=== PATIENT | female | born 1980 | race Caucasian/White ===

== ENCOUNTER → 2018-06-09 | Outpatient (CLI) | payer OTHER ==
[~2018-06-09] MED LIST: GLUCOPHAGE500 MG/TAB PO; IMITREX100 MG PO; MACROBID 1100 MG/CAP PO; NORCO 325 MG-51 TAB PO; PRENATAL1 TA1 PO; WELLBUTRIN SR150 M1 PO
== END ==
LOC: BHSO 09:48
DX: F43.10 Post-traumatic stress disorder, unspecified (principal)

== ENCOUNTER → 2018-06-24 | Outpatient (CLI) | payer OTHER | LOC: BHSO 09:59 | DX: F43.10 Post-traumatic stress disorder, unspecified (principal) ==

== ENCOUNTER → 2018-07-01 | Outpatient (REF) ==
[~2018-07-01] MED LIST changes: +ATIVAN 0.50.5 MG/TAB PO; +EFFEXOR XR75 MG/CAP PO; +OTEZLA PO; +PRINCIPEN500 MG PO; +RELPAX 40MG TAB40 MG PO; +TOPAMAX 100MG100 M1 PO; +TRANDATE 100MG100 MG PO; +ZEMBRACE S3 MG/0.5 M SQ
== END ==
LOC: ZLAB.WCH 08:49
DX: Z01.89 Encounter for other specified special examinations (principal)

== ENCOUNTER 2018-07-06 17:55 | Inpatient (IN) | payer OTHER ==
[~2018-07-06] VITALS: Ht 170.2 cm; Wt 72.9 kg
[2018-07-06] MEDS ORDERED: PERCOCET 325 MG1 TA2 PO (19:16)
[2018-07-06] MEDS ORDERED: NORMODYNE100 MG PO (19:17)
[2018-07-06 20:48] LABS: HEMATOCRIT 40.1 % (37.0-47.0); HEMOGLOBIN 13.6 g/dl (12.5-16.0); MEAN CELL VOLUME 89 fl (80.0-100.0); MEAN CORPUSCULAR HEMOGLOBIN 30 pg (27.0-31.0); MEAN CORPUSCULAR HGB CONC 34 g/dl (33.0-37.0); PLATELET COUNT 316 K/mm3 (130-400); RED BLOOD COUNT 4.52 M/mm3 (4.10-5.30); REDCELL DISTRIBUTION WIDTH-CV 13.2 % (11.5-14.5)
[2018-07-06 20:59] LABS: COLLECTION METHOD CLEAN CATCH
[2018-07-06 20:59] LABS: BILIRUBIN,TOTAL 0.4 mg/dL (0.0-1.0); CALCIUM 9.2 mg/dL (8.4-10.2); CREATININE, serum 0.62 mg/dL (0.52-1.25); POTASSIUM 3.7 mmol/L (3.4-5.0); TOTAL PROTEIN 7.6 gm/dL (6.4-8.2)
[2018-07-06 21:04] LABS: MUCOUS Present /lpf; PH 7 (5-8); URINE APPEARANCE Hazy; URINE BACTERIA Rare /hpf; URINE BILIRUBIN Negative (NEGATIVE); URINE BLOOD Negative (NEGATIVE); URINE COLOR Yellow; URINE GLUCOSE Negative (NEGATIVE); URINE KETONE Negative (NEGATIVE); URINE LEUKOCYTE ESTERASE Negative (NEGATIVE); URINE NITRATE Negative (NEGATIVE); URINE PROTEIN(semi-quant) Negative (NEGATIVE); URINE UROBILINOGEN Negative (NEGATIVE)
[2018-07-06 21:06] LABS: BAND 3 % (0-10); EOSINOPHIL 4 % (0-4); NEUTROPHILS 71 % (42.0-75.2); PLATELET ESTIMATE NORMAL (NORMAL)
[2018-07-06 21:07] LABS: LYMPHOCYTE 15 % (20.0-51.0)
[2018-07-06] MEDS ORDERED: MIGRANAL NASA4 MG/ML NS (23:22)
[2018-07-06 23:55] VITALS: BP 129/79; PULSE 62; TEMP 97.8
[2018-07-07 02:05] VITALS: BP 124/73; PULSE 61
[2018-07-07 04:24] VITALS: BP 107/54; PULSE 73; TEMP 98.2
[2018-07-07 07:27] LABS: MEAN CELL VOLUME 87 fl (80.0-100.0); MEAN CORPUSCULAR HEMOGLOBIN 30 pg (27.0-31.0); MEAN CORPUSCULAR HGB CONC 34 g/dl (33.0-37.0); MEAN PLATELET VOLUME 10.2 fl (7.4-10.4); RED BLOOD COUNT 4.69 M/mm3 (4.10-5.30); REDCELL DISTRIBUTION WIDTH-CV 13.2 % (11.5-14.5)
[2018-07-07 07:32] LABS: PLATELET COUNT 418 K/mm3 (130-400)
[2018-07-07 07:33] LABS: CALCIUM 8.9 mg/dL (8.4-10.2); CREATININE, serum 0.6 mg/dL (0.52-1.25); POTASSIUM 4.2 mmol/L (3.4-5.0)
[2018-07-07 09:24] VITALS: BP 125/80; PULSE 76; TEMP 98.8
[2018-07-07 10:21] LABS: BAND 6 % (0-10); EOSINOPHIL 1 % (0-4); LYMPHOCYTE 9 % (20.0-51.0); NEUTROPHILS 84 % (42.0-75.2); PLATELET ESTIMATE INCREASED (NORMAL)
[2018-07-07 10:22] LABS: TOXIC GRANULATION PRESENT
[2018-07-07 12:03] VITALS: BP 131/72; PULSE 81; TEMP 98.8
[2018-07-07 16:42] VITALS: BP 125/78; PULSE 80; TEMP 99.3
[2018-07-07 20:56] VITALS: BP 115/63; PULSE 76; TEMP 98.8
[2018-07-07 22:13] LABS: TRICYCLIC ANTIDEPRESS URINE NEGATIVE
[2018-07-08] VITALS (7 sets, daily range): BP systolic 115–138; BP diastolic 64–89; PULSE 62–75; TEMP 97.2–99
[2018-07-08 08:46] LABS: BASO # 0.1 (0.0-0.2); BASO % 0.6 % (0.0-2.0); EOS # 0.4 (0.0-0.7); EOS % 2.9 % (0-4.0); GRAN # 7.2 (1.4-6.5); GRAN % 58.2 % (42.2-75.2); HEMATOCRIT 34.1 % (37.0-47.0); LYMPH # 3.8 (1.2-3.4); LYMPH % 30.5 % (20.0-51.0); MEAN CELL VOLUME 89 fl (80.0-100.0); MEAN CORPUSCULAR HEMOGLOBIN 30 pg (27.0-31.0); MEAN CORPUSCULAR HGB CONC 34 g/dl (33.0-37.0); MEAN PLATELET VOLUME 10.1 fl (7.4-10.4); MONO # 0.8 (0.1-0.6); MONO % 6.4 % (1.7-9.3); PLATELET COUNT 361 K/mm3 (130-400); RED BLOOD COUNT 3.85 M/mm3 (4.10-5.30); REDCELL DISTRIBUTION WIDTH-CV 13.8 % (11.5-14.5)
[2018-07-08 08:50] LABS: HEMOGLOBIN 11.7 g/dl (12.5-16.0)
[2018-07-08 08:58] LABS: CALCIUM 8.3 mg/dL (8.4-10.2); CREATININE, serum 0.7 mg/dL (0.52-1.25); POTASSIUM 3.7 mmol/L (3.4-5.0)
[2018-07-09 04:53] VITALS: BP 121/74; PULSE 57
[2018-07-09 04:54] VITALS: TEMP 98
[2018-07-09 07:42] VITALS: BP 113/76; PULSE 70; TEMP 98.2
[2018-07-09 07:43] LABS: HEMOGLOBIN 12.1 g/dl (12.5-16.0); MEAN CELL VOLUME 88 fl (80.0-100.0); MEAN CORPUSCULAR HEMOGLOBIN 30 pg (27.0-31.0); MEAN CORPUSCULAR HGB CONC 35 g/dl (33.0-37.0); MEAN PLATELET VOLUME 9.8 fl (7.4-10.4); PLATELET COUNT 386 K/mm3 (130-400); RED BLOOD COUNT 3.99 M/mm3 (4.10-5.30); REDCELL DISTRIBUTION WIDTH-CV 13.8 % (11.5-14.5)
[2018-07-09 07:45] LABS: HEMATOCRIT 34.9 % (37.0-47.0)
[2018-07-09 07:55] LABS: CREATININE, serum 0.72 mg/dL (0.52-1.25); POTASSIUM 3.7 mmol/L (3.4-5.0)
[2018-07-09 08:11] LABS: BAND 3 % (0-10); EOSINOPHIL 6 % (0-4); LYMPHOCYTE 41 % (20.0-51.0); NEUTROPHILS 42 % (42.0-75.2); PLATELET ESTIMATE NORMAL (NORMAL)
== END 2018-07-09 11:28 | disposition home or self-care (01) | DRG 103 ==
LOC: COL.ER 17:55 → MEDICAL 21:49
PROVIDERS: Emergency Medicine; Nurse Practitioner; Nurse Practitioner Family; Physician Assistant
DX: G43.909 Migraine, unspecified, not intractable, without status migrainosus (principal); D72.829 Elevated white blood cell count, unspecified; M54.81 Occipital neuralgia; F32.9 Major depressive disorder, single episode, unspecified
CPT/HCPCS: 99223-AI; 99233-AI; 99239; A9585; J0780; J1100; J1200; J1650; J1885; J2405; J2543; J3475; J7030; Q9967

== ENCOUNTER → 2018-07-10 | Outpatient (CLI) | payer OTHER ==
[~2018-07-10] MED LIST changes: +MIGRANAL NASA4 MG/ML NS; +NORMODYNE100 MG PO; +PERCOCET 325 MG1 TA2 PO
== END ==
LOC: BHSO 10:26
DX: F43.10 Post-traumatic stress disorder, unspecified (principal)

== ENCOUNTER → 2018-07-20 | Outpatient (CLI) | payer OTHER | LOC: BHSO 15:00 | DX: F43.10 Post-traumatic stress disorder, unspecified (principal) ==

== ENCOUNTER → 2018-09-02 | Outpatient (CLI) | payer OTHER | LOC: BHSO 10:58 | DX: F43.10 Post-traumatic stress disorder, unspecified (principal) ==

== ENCOUNTER → 2018-09-16 | Outpatient (CLI) | payer OTHER | LOC: BHSO 11:00 | DX: F43.10 Post-traumatic stress disorder, unspecified (principal) ==

== ENCOUNTER → 2018-09-22 | Outpatient (CLI) | payer OTHER | LOC: BHSO 11:00 | DX: F43.10 Post-traumatic stress disorder, unspecified (principal) ==

== ENCOUNTER → 2018-10-07 | Outpatient (CLI) | payer OTHER | LOC: BHSO 10:58 | DX: F43.10 Post-traumatic stress disorder, unspecified (principal) ==

== ENCOUNTER → 2018-10-20 | Outpatient (CLI) | payer OTHER | LOC: BHSO 09:00 | DX: F43.10 Post-traumatic stress disorder, unspecified (principal) ==

== ENCOUNTER → 2018-10-27 | Outpatient (CLI) | payer OTHER | LOC: BHSO 11:02 | DX: F43.10 Post-traumatic stress disorder, unspecified (principal) ==

== ENCOUNTER → 2018-11-03 | Outpatient (CLI) | payer OTHER | LOC: BHSO 10:57 | DX: F43.10 Post-traumatic stress disorder, unspecified (principal) ==

== ENCOUNTER → 2018-11-10 | Outpatient (CLI) | payer OTHER | LOC: BHSO 11:01 | DX: F43.10 Post-traumatic stress disorder, unspecified (principal) ==

== ENCOUNTER → 2018-11-18 | Outpatient (CLI) | payer OTHER | LOC: BHSO 10:17 | DX: F43.10 Post-traumatic stress disorder, unspecified (principal) ==

== ENCOUNTER → 2020-07-28 | Outpatient (CLI) | payer BC | LOC: MC.RAD 08:15 | DX: Z12.31 Encounter for screening mammogram for malignant neoplasm of breast (principal) ==